=== PATIENT | male | born 1945 | race Caucasian/White ===

== ENCOUNTER → 2016-09-14 | Outpatient (CLI) | payer OTHER | LOC: BHFA 11:00 | PROVIDERS: ATTEND Internal Medicine Cardiovascular Disease | DX: I48.91 Unspecified atrial fibrillation (principal) ==

== ENCOUNTER → 2017-07-22 | Outpatient (CLI) | payer OTHER | LOC: BHFA 13:00 | PROVIDERS: ATTEND Internal Medicine Interventional Cardiology | DX: R07.9 Chest pain, unspecified (principal); I25.10 Atherosclerotic heart disease of native coronary artery without angina pectoris | CPT/HCPCS: 78452; 93017; A9500; J2785 ==

== ENCOUNTER 2017-08-23 06:03 | Day surgery (SDC) | payer OTHER ==
[2017-08-23] MEDS ORDERED: DIAZEPAM 5 MG TAB PO ONE (06:07)
[2017-08-23] MEDS ORDERED: ASPIRIN EC 325 MG TAB PO ONE ×2 (06:07→06:37)
[2017-08-23] MEDS ORDERED: NS 1,000 ML IV ONE (06:07)
[2017-08-23] MEDS ORDERED: diphenhydrAMINE 25 MG CAP PO ONE ×2 (06:07→06:37)
[2017-08-23] MEDS ORDERED: FAMOTIDINE 20 MG TAB PO ONE (06:07)
--- NOTE | 2017-08-23 06:28 | CPEKG ---
Heart Rate: 55 RR Interval: 1091 P-R Interval: 156 QRSD Interval: 84 QT Interval: 440 QTC Interval: 421 P Delano: 68 QRS Delano: 67 T Wave Delano: -4 EKG Severity - BORDERLINE ECG - EKG Impression: SINUS RHYTHM EKG Impression: BORDERLINE T ABNORMALITIES, INFERIOR LEADS Electronically Signed By: Lorenzo Sandoval 23-Aug-2017 06:44:37
[2017-08-23] MEDS ORDERED: FAMOTIDINE 20 MG TAB ONE (06:37)
[2017-08-23] MEDS ORDERED: DIAZEPAM 5 MG TAB ONE (06:38)
[2017-08-23 06:44] LABS: PLATELET COUNT 327 10^3/uL (150-400)
[2017-08-23 06:52] LABS: INR 1.03 (0.83-1.16); PROTIME(PATIENT) 13.7 SEC (12.0-15.0)
--- NOTE | 2017-08-23 07:09 | PDGENHP ---
History & Physical Chief Complaint: CP History of Present Illness: prior PCI/CAD Pertinent Past, Social, Family History: no smoking, Relevant Physical Exam: PERRLA. CTA-B. RRR s1 s2. soft NT, NG. no edema Cardiorespiratory Assessment: stable angina- plan for [facility] today
--- NOTE | 2017-08-23 07:10 | PDPROPOC ---
Sedation Plan of Care Sedation Plan of Care: mental status noted, patient educated of risks, benefits , alternatives, patient can tolerate sedation ASA Classification: ASA 2 Planned drugs: fentanyl, midazolam Mallampati Score: Class 2 Mallampati Reference Image: Patient passed 3-3-2 rule?: Yes
[2017-08-23] MEDS ORDERED: fentaNYL 100 MCG/2 ML INJ ONE (07:12)
[2017-08-23] MEDS ORDERED: LIDOCAINE 1% 300 MG/30 ML SDV ONE (07:12)
[2017-08-23] MEDS ORDERED: IOPAMIDOL (ISOVUE-370) 150 ML BTL IV ONE (07:13)
[2017-08-23] MEDS ORDERED: MIDAZOLAM 2 MG/2 ML VIAL ONE (07:13)
[2017-08-23] MEDS ORDERED: NITROGLYCERIN 0.4 MG BTL SL PRN (08:18)
[2017-08-23] MEDS ORDERED: ATROPINE SULFATE 1 MG/10 ML SYR IVP PRN (08:18)
[2017-08-23] MEDS ORDERED: HYDROCODONE/APAP 5/325 TAB PO PRN (08:18)
[2017-08-23] MEDS ORDERED: OXYCODONE/APAP 5/325 TAB PO PRN (08:18)
[2017-08-23] MEDS ORDERED: ONDANSETRON 4 MG/2 ML VIAL IVP PRN (08:18)
--- NOTE | 2017-08-23 08:45 | CPIP ---
[f rep st] INVASIVE CARDIAC PROCEDURE DATE OF PROCEDURE: 08/23/2017 INDICATIONS FOR PROCEDURE: Chest pain. Positive stress test. PROCEDURE: 1. Nonselective right groin sheathogram. 2. Bilateral selective coronary angiography. 3. Left heart catheterization. 4. Left angiogram. 5. Right groin closure with 6-[place] Angio-Seal. HISTORY: Briefly, this is a 72-year-old male with history of multiple PCIs to the LAD, diagonal eric ry. Patient was having outpatient angina and had a stress test which was positive for anterior ische zoey. Given these findings, patient consented for a left heart catheterization. DESCRIPTION OF PROCEDURE: After informed consent, patient brought to [facility], his r ight groin was prepped and draped in a sterile fashion. Using lidocaine, a short 6-[place] sheath was introduced in the right common femoral artery verified angiographically. Utilizing a 6-[place] sheat h, a JL4 catheter was advanced. Images of JL4 catheter revealed normal proximal left main. The circ umflex artery appeared to come off a stented portion of the LAD which had extended into the distal le ft main. The ostial portion of the circumflex artery appeared to have a 70% ostial pinch with a tiny marginal 1 which had a 70% pinch distally. The marginal artery had a mid lesion of 40% to 50% going into healthy distal marginal vessels which trifurcated. The LAD was extensively stented from the di stal left main into the mid portion. There was also a medium to large diagonal artery which coming o ff the midportion of the LAD which was extensively stented as well. The LAD had moderate in-stent re stenosis in its mid distal aspect. The distal vessel was small and had sluggish flow but was patent. The diagonal artery was successfully stented from its ostium to its proximal portion. Just at the distal edge of the stent there was a lesion of at least 60% to 70%. Distally, the vessel appeared to be widely patent. Everything was exchanged, the JL4 catheter was removed over the 0.035 wire. A JR 4 catheter was advanced to the right coronary artery. Image of right coronary artery revealed normal os, prox, mid, distal RCA, RPDA and RPL appeared widely patent. The JR4 catheter was removed over 0 .035 wire. Pigtail catheter was advanced to the left ventricle. LVEDP was 16 mmHg. Left ventriculo graphy in the ROB projection showed EF of 65% with no wall motion abnormality. There was no pullback gradient between the LV and the aorta. Pigtail catheter was removed over 0.035 wire. Right groin w as closed with 6-[place] Angio-Seal. Patient tolerated procedure well with no complications. IMPRESSION: 1. High-grade ostial left circumflex disease, which appears to have progressed since his last angiog daniel. Unfortunately, this area is coming off a stented region thus limiting any percutaneous interven tion of this area. 2. Paxldnls-md-rchesb focal in-stent restenosis of the mid distal left anterior descending stents. 3. Edge stenosis of a medium to large diagonal artery. 4. Normal right coronary artery. 5. Normal ejection fraction. PLAN: Given the fact that patient has shown evidence once again of in-stent restenosis development i n his LAD, as well as having progression of his ostial circumflex disease, as well as now an edge blanka nosis of his diagonal artery disease; I feel that a consult with CT Surgery is warranted as the patie nt has had multiple PCIs in the same arterial distribution over the last few years. We will contact Dr. Garcia later this morning and proceed accordingly. /[id number]/MODL
--- NOTE | 2017-08-23 10:50 | GCON ---
[f rep st] CONSULTATION DATE OF CONSULTATION: 08/23/2017 REFERRING PHYSICIAN: Missael Agee MD The patient was seen at the request of Dr. Agee with the patient's permission. IMPRESSION: 1. Recurrent in-stent stenosis status post multiple stents to the left anterior descending and high-grade proximal circumflex disease as well as diagonal disease. 2. Paroxysmal atrial fibrillation by history. 3. Hypertension. 4. Prostate cancer in remission. RECOMMENDATIONS: This very pleasant, quite active gentleman should undergo coronary artery revascularization. At the present time, he is on Pradaxa for his stents and paroxysmal atrial fibrillation. We will discontinue that 4 days prior to surgery. I see no need for bridge in the interim, although I will discuss that with Dr. Agee, I advised him that I would use arterial revascularization to his LAD and circumflex and place vein bypass to his diagonal. We will also perform a Gonzalez-Maze IV procedure for his atrial fibrillation which puts him at risk of 10% to 12% of having a permanent pacemaker. We will make every effort to avoid the sinus node obviously. Risk is less than 1%. Long-term patency is greater than 90% at 10 years on arterial revascularization. It is my hope that this will prevent him from having further coronary artery events. We discussed the low incidence of recurrence in the face of arterial revascularization. I did quote him a 93% 1 year free of atrial fibrillation which goes to 80% at 5 years off antiarrhythmic drugs. CHIEF COMPLAINT: Recurrent onset of exertional angina with running longer distances. This gentleman has a longstanding history of multiple coronary artery interventions with multiple stents performed in the past. He underwent diagnostic left heart cath today which revealed severe 2-vessel disease with recurrent end-stent stenosis with multiple previous stenting procedures to both the LAD and the circumflex. MEDICAL HISTORY: As stated. SURGERIES: Multiple stents. ALLERGIES: No known drug allergies. MEDICATIONS: Atorvastatin, Pradaxa, nitroglycerin, losartan, Firmagon, Diluent syringe, clopidogrel, and atorvastatin. Apparently clopidogrel has been held. SOCIAL HISTORY: He exercises 4-6 times a week. He is , has 1 child. He has very remote cigarette abuse. Denies heavy alcohol use. FAMILY HISTORY: Noncontributory. REVIEW OF SYSTEMS: Except for his exertional angina, he is symptom free, and all 10 systems were interrogated. PHYSICAL EXAMINATION: GENERAL: A slender, elderly gentleman lying supine in bed, alert, oriented, accompanied by his who is quite appropriate and supportive as well as very helpful with history and concerns. VITAL SIGNS: 120/ 80, pulse 76, respirations 14. HEENT: Normocephalic, PERRLA, EOMI. NECK: Without bruits. Carotid ultrasound is pending. HEART: Rate is regular without murmur. LUNGS: Clear. ABDOMEN: Soft, nontender. Bowel sounds are active. RECTAL AND GENITAL: Deferred. NEUROLOGIC: He is grossly intact. Motor deficits identified. He had a Holter monitor in September which showed sinus bradycardia with runs of AFib with a rate of 100-179 beats per minute. A stress test in July revealed a moderate area of mild severity in the apical portion. He has reversible anterior apical ischemia no longer present. Location of defect unchanged. Because of his anginal symptoms, he was referred for catheterization. PLAN: We will also perform carotid ultrasound and chest x-ray preoperatively. /[id number]/MODL MTDD
== END 2017-08-23 11:45 | disposition home or self-care (01) ==
LOC: FCATH 06:03
PROVIDERS: ATTEND Internal Medicine Cardiovascular Disease
PROC: 4A023N7 Measurement of Cardiac Sampling and Pressure, Left Heart, Percutaneous Approach (ICD-10-PCS; principal; 2017-08-23)
PROC: B2151ZZ Fluoroscopy of Left Heart using Low Osmolar Contrast (ICD-10-PCS; principal; 2017-08-23)
PROC: B2111ZZ Fluoroscopy of Multiple Coronary Arteries using Low Osmolar Contrast (ICD-10-PCS; principal; 2017-08-23)
DX: I25.10 Atherosclerotic heart disease of native coronary artery without angina pectoris (principal); I48.0 Paroxysmal atrial fibrillation; I10 Essential (primary) hypertension; Z85.46 Personal history of malignant neoplasm of prostate
CPT/HCPCS: C1760; J1644; J2250; J3010; Q9967

== ENCOUNTER 2017-09-05 07:15 | Inpatient (IN) | payer OTHER ==
[~2017-09-05 07:15] MED LIST: ADENOSINE 6 MG/2 ML VIAL ONE; ALBUMIN 5% 250 ML BOTTLE IV ONE; AMIODARONE HCL 150 MG/3 ML VIAL ONE; CALCIUM CHLORIDE 1 GM/10 ML INJ ONE; CITRATE DEXTROSE SOLN 500 ML BAG ONE; DOPamine/DEXTROSE/250 ML BAG IV ONE; HEPARIN 10,000 UNIT/10 ML MDV (1,000 UNIT/ML) ONE; INSULIN REGULAR HUMAN 100 UNIT in NS 100 ML IV ONE; LIDOCAINE 2% 100 MG/5 ML SYR ONE; MAGNESIUM SULFATE 1 GM/2 ML VIAL ONE; MANNITOL 25% 12.5 GM/50 ML VIAL IVP ONE; MILRINONE/DEXTROSE/100 ML BAG IV ONE; NA BICARBONATE 50 MEQ/50 ML VIAL ONE; NOREPINEPHRINE BITARTRATE 16 MG in NS 250 ML IV ONE; PHENYLEPHRINE HCL 50 MG in NS 250 ML IV ONE; PROTAMINE SULFATE 50 MG/5 ML VIAL IVP ONE; SODIUM BICARBONATE 20 MEQ, LIDOCAINE 1% 10 ML in NORMOSOL-R 1,000 ML MISC ONE; VERAPAMIL 5 MG, NITROGLYCERIN 2.5 MG, HEPARIN 500 UNIT, SODIUM BICARBONATE 0.2 MEQ in L... MISC ONE; ceFAZolin 1 GM VIAL ONE; methylPREDNISolone SOD SUCC 1 GM/8 ML VIAL ONE; niCARdipine/NACL/200 ML BAG IV ONE
[2017-09-05] MEDS ORDERED: CITRATE DEXTROSE SOLN 500 ML BAG MISC ONE (10:28)
[2017-09-05] MEDS ORDERED: MUPIROCIN 2% 22 GM OINT NS ONE (10:28)
[2017-09-05] MEDS ORDERED: AMINOCAPROIC ACID 5 GM/20 ML VIAL IV ONE (10:28)
[2017-09-05] MEDS ORDERED: ceFAZolin 2 GM/SWFI 2 GM/20 ML SYR IVP ONE (10:28)
[2017-09-05] MEDS ORDERED: LR 1,000 ML IV ONE (10:29)
[2017-09-05] MEDS ORDERED: niCARdipine/NACL 200 ML IV SCH (11:00)
[2017-09-05] MEDS ORDERED: VERAPAMIL 5 MG/2 ML VIAL ONE ×2 (11:16→16:29)
[2017-09-05] MEDS ORDERED: PAPAVERINE HCL 60 MG/2 ML SDV ONE ×2 (11:16→16:29)
[2017-09-05] MEDS ORDERED: MINERAL OIL 10 ML VIAL ONE (11:16)
--- NOTE | 2017-09-05 11:18 | PDHPUP ---
History & Physical Update H&P update statement: This history and physical update is based on an assessment of the patient which was completed after admission or registration (within 24 hours), but prior to the surgery/procedure. H&P update: H&P reviewed & patient examined, no change in patient's condition since H&P completed
[2017-09-05] MEDS ORDERED: MIDAZOLAM 2 MG/2 ML VIAL IVP ONE (11:52)
--- NOTE | 2017-09-05 11:52 | PDANEPAE ---
ANE History of Present Illness 72 yo for cabg ANE Past Medical History - Cardiovascular History Hx Hypertension: Yes Hx Arrhythmias: Yes Hx Coronary Artery / Peripheral Vascular Disease: Yes Hx Palpitations: Yes Cardiovascular History Comment: HYPERCHOLESTEREMIA. STENTS X5. ATRIAL FIB - ASYMPTOMATIC EXCEPT FOR "FLUTTERS" OCCASIONALLY AND HAS EXTREME FATIGUE - Pulmonary History Hx COPD: No Hx Asthma/Reactive Airway Disease: No Hx Recent Upper Respiratory Infection: No Hx Oxygen in Use at Home: No Hx Sleep Apnea: No Sleep Apnea Screening Result - Last Documented: Negative - Neurologic History Hx Cerebrovascular Accident: No Hx Seizures: No Hx Dementia: No - Endocrine History Hx Diabetes: No - Renal History Hx Renal Disorders: No Renal History Comment: RECENT UTI TXD. URINARY RETENTION - Liver History Hx Hepatic Disorders: No - Neurological & Psychiatric Hx Hx Neurological and Psychiatric Disorders: No - Cancer History Hx Cancer: Yes Cancer History Comment: PROSTATE CANCER TXD W/RADIATION AND NOW W/MEDICATIONS - Congenital Disorder History Hx Congenital Disorders: No - GI History Hx Gastrointestinal Disorders: No - Other Health History Other Health History: NEG - Chronic Pain History Chronic Pain: No - Surgical History Prior Surgeries: CATARACT. ANGIOGRAM 2012 & 2023 W/5 STENTS. ANGIOGRAM . RADIATION FOR PROSTATE CA. HERNIA REPAIR 1999 R W/MESH ANE Review of Systems Review of Systems: - Exercise capacity METS (RN): 5 METS ANE Patient History - Allergies Allergies/Adverse Reactions: Penicillins Allergy (Verified 08/29/17 16:41) NAUSEA & GI CRAMPS - Home Medications Home medications: home medication list seen and reviewed Home Medications: Atorvastatin Calcium [Lipitor 40 mg (*)] 40 mg PO DAILY 08/19/17 [Last Taken 10/19] Brimonidine 0.1% [ALPHAGAN P 0.1% (*)] 1 drops EACHEYE BID 08/19/17 [Last Taken 09/05/17] Cholecalciferol Vit D3 [Vitamin D3 (*)] 1,000 units PO DAILY 08/19/17 [Last Taken 08/31/17] Clopidogrel Bisulfate [Plavix (*)] 75 mg PO DAILY 08/19/17 [Last Taken 08/31/17] Dabigatran Etexilate Mesyl [Pradaxa 150 MG (*)] 150 mg PO BID 08/19/17 [Last Taken 08/31/17] Degarelix Acetate [Firmagon] 80 mg SQ Q30D 08/19/17 [Last Taken 08/15/17] Enzalutamide [Xtandi] 160 mg PO DAILY 08/19/17 [Last Taken 09/04/17] Ezetimibe [Zetia 10 MG (*)] 10 mg PO DAILY 08/19/17 [Last Taken 09/04/17] Losartan Potassium [Cozaar 50 mg (*)] 50 mg PO DAILY 08/19/17 [Last Taken ] Multivitamins [Multivitamin (*)] 1 each PO DAILY 08/19/17 [Last Taken 08/31/17] Nitroglycerin [Nitrostat 0.4 mg (*)] 0.4 mg SL Q5M PRN 08/19/17 [Last Taken Unknown] - NPO status NPO Since - Liquids (Date): 09/04/17 NPO Since - Liquids (Time): 20:00 NPO Since - Solids (Date): 09/04/17 NPO Since - Solids (Time): 18:00 - Smoking Hx Smoking Status: Former smoker - Family Anes Hx Family Hx Anesthesia Complications: NEG ANE Labs/Vital Signs - Vital Signs Blood Pressure: 163/85 Heart Rate: 52 Respiratory Rate: 18 O2 Sat (%): 96 Height: 5 ft 8 in Weight: 65.771 kg ANE Physical Exam - Airway Mallampati Score: Class 2 Mouth exam: normal dental/mouth exam - Pulmonary Pulmonary: no respiratory distress - Cardiovascular Cardiovascular: regular rate and rhythym - ASA Status ASA Status: III ANE Anesthesia Plan Anesthesia Plan: general endotracheal anesthesia Lines/Monitors: arterial line, central line, ALONSO
[2017-09-05] MEDS ORDERED: fentaNYL 250 MCG/5 ML INJ ONE (12:17)
[2017-09-05] MEDS ORDERED: REMIFENTANIL HCL 1 MG VIAL ONE (12:17)
[2017-09-05] MEDS ORDERED: PROPOFOL/EMULSION 500 MG/50 ML BOTTLE IV ONE (12:18)
[2017-09-05] MEDS ORDERED: DEXMEDETOMIDINE HCL 200 MCG in NS 50 ML IV ONE ×2 (14:00→16:30)
--- NOTE | 2017-09-05 15:05 | GCON ---
[f rep st] CONSULTATION INTRAOPERATIVE CONSULT. DATE OF CONSULTATION: 09/05/2017 REFERRING PHYSICIAN: Carmelo Garcia DO PRIMARY CARE PHYSICIAN: Dr. 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 HISTORY: This 72-year-old gentleman who is having cardiac surgery. He is asleep and they were attem pting to pass a catheter and they were unable to do that. So, he has had blood at his meatus. Upon arrival, and on exam, his of abdomen, he has no previous lower abdominal incisions but he has a camilla ng stencil for external beam radiation therapy. At the present time, he has been unable to be cathete rized. He does catheterize himself periodically for dilation and was going to be treated, but his ca rdiac condition has taken priority. PHYSICAL EXAM: ABDOMEN: Soft under general anesthesia. LUNGS: He has no respiratory distress because he is on the ventilator. GENITOURINARY: Penis is normal and has no pubic hair. Testicles are atrophied. LOWER EXTREMITIES: Show minimal edema. PROCEDURE IN DETAIL: At that point, he was prepped and draped in normal sterile fashion. With a flex ible cystoscope, I could identify that his urethra was normal up to the bulb, sphincteric and prostat ic urethra and at that point, I was able to pass a guidewire, under direct vision, into that and then was able to gradually dilate the contracted/urethral stricture with a 20-Thai Williams tip dilating sheath and was able to get a 16 Phillip catheter in the bladder that drained the urine. The urine cul ture was sent. The 10 cc balloon inflated. At the present time, I have recommend he continue the cat heter until he is ambulating and then they removed it and he will have followup with his urologist wh o was not in this facility. Total of 45 minutes was involved in the care and treatment of this patient. PROCEDURE: Cystoscopy with complex dilation of the urethral stricture, complicated catheterization a nd intraoperative consult. /[id number]/MODL
[2017-09-05] MEDS ORDERED: MAGNESIUM SULF 2 GM/WATER 50 ML BAG IV ONE (16:19)
[2017-09-05] MEDS ORDERED: ROCURONIUM 50 MG/5 ML VIAL ONE ×3 (18:00)
[2017-09-05] MEDS ORDERED: ONDANSETRON 4 MG/2 ML VIAL ONE (18:00)
[2017-09-05] MEDS ORDERED: DEXAMETHASONE 4 MG/ML VIAL ONE ×2 (18:00)
[2017-09-05] MEDS ORDERED: PHENYLEPHRINE HCL 100 MCG/ML SYR ONE (18:00)
[2017-09-05] MEDS ORDERED: BISACODYL 10 MG SUPP PR PRN (18:33)
[2017-09-05] MEDS ORDERED: D50W 25 GM/50 ML SYR IVP PRN (18:33)
[2017-09-05] MEDS ORDERED: MEPERIDINE 25 MG/ML SYR IVP PRN (18:33)
[2017-09-05] MEDS ORDERED: POTASSIUM Cl (KCl) 50 ML IV PRN (18:33)
[2017-09-05] MEDS ORDERED: MAGNESIUM HYDROXIDE 30 ML UDCUP PO PRN (18:33)
[2017-09-05] MEDS ORDERED: SODIUM CL NASAL 45 ML BTL EACHNARE PRN (18:33)
[2017-09-05] MEDS ORDERED: LACTULOSE 20 GM/30 ML UDCUP PO PRN (18:33)
[2017-09-05] MEDS ORDERED: ONDANSETRON DISINTEGRATING 4 MG TAB PO PRN (18:33)
[2017-09-05] MEDS ORDERED: ACETAMINOPHEN 650 MG SUPP PR PRN (18:33)
[2017-09-05] MEDS ORDERED: PANTOPRAZOLE SODIUM 40 MG VIAL IVP ONE (18:33)
[2017-09-05] MEDS ORDERED: METOCLOPRAMIDE 10 MG/2 ML VIAL IVP PRN (18:33)
[2017-09-05] MEDS ORDERED: MAGNESIUM SULF 2 GM/WATER 50 ML IV ONE (18:33)
[2017-09-05] MEDS ORDERED: CEPACOL LOZENGE PO PRN (18:33)
[2017-09-05] MEDS ORDERED: POLYETHYLENE GLYCOL 3350 17 GM PKT PO PRN (18:33)
[2017-09-05] MEDS ORDERED: fentaNYL 100 MCG/2 ML INJ IVP PRN (18:33)
[2017-09-05] MEDS ORDERED: ACETAMINOPHEN 325 MG TAB PO PRN (18:33)
[2017-09-05] MEDS ORDERED: NS 1,000 ML IV SCH (18:45)
[2017-09-05] MEDS ORDERED: INSULIN REGULAR HUMAN 100 UNIT in NS 100 ML IV SCH (19:00)
[2017-09-05] MEDS ORDERED: SODIUM BICARBONATE 50 MEQ/50 ML SYR ONE (19:10)
[2017-09-05] MEDS ORDERED: SODIUM BICARBONATE 50 MEQ/50 ML SYR IV ONE (19:30)
[2017-09-05] MEDS: ONDANSETRON 4 MG/2 ML VIAL IVP PRN (20:01)
--- NOTE | 2017-09-05 20:16 | GOP ---
[f rep st] OPERATIVE REPORT DATE OF OPERATION: 09/05/2017 SURGEON: Carmelo Garcia DO SHOULDER BONER: Ezequiel Carter PA-C ANESTHESIOLOGIST: Pilar Son MD. PREOPERATIVE DIAGNOSIS: Arteriosclerotic heart disease and paroxysmal atrial fibrillation. POSTOPERATIVE DIAGNOSIS: Arteriosclerotic heart disease and paroxysmal atrial fibrillation. PROCEDURE PERFORMED: 1. Coronary artery bypass grafting x3 with 2 arterial conduits with left internal mammary artery to the left anterior descending, right internal mammary artery to the diagonal, saphenous vein graft to the lateral circumflex. 2. Left-sided maze procedure with occlusion of left atrial appendage. FINDINGS: Patient had a history of paroxysmal atrial fibrillation. He presented in sinus rhythm off anticoagulants. He also was noted to have 2-vessel disease with multiple prior stents. DESCRIPTION OF PROCEDURE: He was consented for surgery, brought to the operating room, intubated, mo nitoring lines were placed. He was prepped and draped in sterile classical manner. A sternotomy was performed. Both mammaries were harvested. They were relatively small vessels with brisk flow measu ring 1.82 mm. The aorta was slightly enlarged, but without thickening or calcification. LV and RV c hambers appeared normal. Both mammaries were harvested. He was heparinized, cannulated in the stand yakov fashion, cardiopulmonary bypass was begun. We then did testing on both left and right pulmonary vein systems with no evidence of entrance or exi t block and good conduction across both. We then did multiple pulmonary vein ablations; in fact, we did 25 ablations to the right pulmonary vein with multiple sets requiring 5 seconds or less for compl etion. Despite that, we continued to test positive for entrance block. However, exit block was conf irmed. At that point we felt there was no further benefit in attempting to further ablate. We had r esected all the fat off the groove, so it was direct muscle contact. We then proceeded with arresting the heart with antegrade cardioplegia and topical hypothermia. We t hen did 9 or 10 lesion sets across the left pulmonary vein system, which was tested at the end of the procedure without evidence of entrance or exit conduction with good block identified. We then opene d the left atrial appendage and did 4 to 6 lesion sets across the Coumadin ridge into the left superi or pulmonary vein crossing the previous ablation line. We then placed a 35 mm AtriClip across the ba se of the left atrial appendage. The terminus of the left and right coronary systems was marked over the coronary sinus for further cryoablation with methylene blue. We then opened the left atrium and a retractor was placed. We performed the floor and roof lesion with multiple lesion sets; again, re quiring less than 10 seconds for completion, completing the box lesion set both superiorly and inferi yvette. We then used external cryoablation for 3 minutes across the coronary sinus watching an ice bal l form on the inside of the left atrium. This was marked and overlapped with a 2- minute cryoablatio n across the isthmus connecting to the right inferior pulmonary line. The left atrium was then close d in standard fashion. We then performed vein grafting to the posterolateral circumflex. Because it was such a distal vessel , I did not think a mammary would reach it. It was a 2.0 mm vessel. It had a 2.8-3 mm vein anastomo sed without difficulty. The proximal anastomosis was then completed to the ascending aorta with 5-0 Prolene. Rewarming was begun while the right internal mammary was brought through a lateral pericard ial incision and grafted to a moderate-size 1.8 mm vessel, tacking it to the epicardium without tensi on. We then grafted the mammary to the LAD beyond extensive stents where the vessel measured 2 mm. It was also tacked to the epicardium. We then removed the cross-clamp with suction on the ascending aortic vent and intermittent aspiration through the LV apex. When no further air was identified, he was weaned from bypass. He required atrial pacing because of a junctional bradycardia. He was somew hat coagulopathic. We spent some time confirming that it was not surgical bleeding. We then closed the thymic fat and pericardium over the heart. The chest was closed in standard fashion with 2 atria l, 2 ventricular, 2 pleural and 1 mediastinal drain. The chest was closed in standard fashion. Liz lundberg was returned to ICU in stable condition. /[id number]/MODL
[2017-09-05] MEDS: ceFAZolin 2 GM/SWFI 2 GM/20 ML SYR IVP SCH (20:31)
[2017-09-05] MEDS ORDERED: SODIUM BICARBONATE 50 MEQ/50 ML SYR IVP ONE (21:45)
[2017-09-05] MEDS: SENNOSIDES/DOCUSATE SODIUM TAB PO SCH (21:45)
[2017-09-05] MEDS: BRIMONIDINE 0.1% 5 ML OPHT.BTL EACHEYE SCH (21:46)
[2017-09-05] MEDS: DORZOLAMIDE 2% OPTH DROPS OP SCH (21:46)
[2017-09-05] MEDS: MUPIROCIN 2% 22 GM OINT NS SCH (21:47)
[2017-09-05] MEDS ORDERED: ceFAZolin 2 GM/DEXTROSE 100 ML IV SCH (22:00)
[2017-09-06] MEDS: HYDROCODONE/APAP 5/325 TAB PO PRN ×7 (02:50→22:13)
[2017-09-06] MEDS: ALBUMIN 5% 250 ML IV PRN ×3 (03:08→06:14)
[2017-09-06] MEDS: ceFAZolin 2 GM/SWFI 2 GM/20 ML SYR IVP SCH ×3 (04:14→22:07)
[2017-09-06 05:23] LABS: PLATELET COUNT 97 10^3/uL (150-400)
[2017-09-06] MEDS: HEPARIN 5,000 UNIT/0.5 ML SYR SC SCH ×3 (05:24→22:05)
--- NOTE | 2017-09-06 07:14 | SOAPPROG ---
SOAP Progress Note Assessment/Plan: Assessment: POD#1 urgent CABG x 3 (EVANS-LAD, QIAN-Dx, SV-LCX), open vein harvest left low leg, left sided Maze with AtriClip ligation VALERIE Cystoscopy, complex dilatation of urethral stricture and complex passage of edwards cath per urology Sx progressive CAD/ISR with preserved LV systolic fx - s/p CABG with 2 bilateral mammaries. Hemodynamically stable early postop course, Apaced. No sustained vasoactive support. Secondary prevention with baby ASA, BB as allowed by BP and HR, and statin when eating well. Plavix no longer needed as stented territories revascularized. Paroxysmal atrial fibrillation/chronically anticoagulated with Pradaxa - Only partial Maze completed d/t fragility of tissues. Predominant postop rhythm junctional and Apaced for optimized hemodynamics. Urethral stricture - Attributed to scarring post XRT for prostate CA. Intraop dilatation by urology. Edwards to be removed today. Acute expected blood loss anemia with thrombocytopenia and mild coagulopathy - Stable s/p 1u PRBC. No evidence active bleeding. Care with re-anticoagulation while plts depressed. Plan: D/C edwards. Reduce backup pacing to 60. Inc rate to 80 if SBP < 90. PRBC for CVP < 10 or BP support. D/C sivan if holding stable SBP next couple hrs. Keep CTs to WS. Consider conversion to bulb suction if no definite air leak when more mobile. Inc activity as tolerated. Possible tx to PCU later today. 09/06/17 07:10 Subjective: Doing ok. Able to sleep a little. Satisfactory analgesia. Thirsty. No nausea or dizziness. Objective: Vital Signs Temp Pulse Resp BP Pulse Ox 36.6 C 80 17 92/51 L 94 09/06/17 05:00 09/06/17 06:00 09/06/17 06:00 09/06/17 06:00 09/06/17 06:00 Microbiology 09/05/17 13:20 Mycobacterial Smear (RHONDA) - Final Other - Other 09/05/17 14:13 Mycobacterial Smear (RHONDA) - Final Other - Aspirate Mycobacterial Culture - Final 09/05/17 14:13 Gram Stain - Final Other - Aspirate Anaerobic Culture - Final Laboratory Results 09/06/17 05:10 09/06/17 05:10 09/05/17 09/06/17 09/07/17 05:59 05:59 05:59 Intake Total 3187 Output Total 2670 Balance 517 No gtts. Apaced at 80 for underlying JR. Stable suppl O2 req. CTOP thinning. Amount slightly elevated. CXR -> No visible PTX, mild pulm vasc congestion, left basilar atelectasis. Labs as expected. Physical Exam - Physical Exam General Appearance: alert, no apparent distress Respiratory: crackles (bilat), other (blakes x 3 y-d to pleurovac, serosang drainage, +tidal, small air leak with cough) Cardiac/Chest: regular rate, rhythm (paced), other (Sternotomy and LLE venotomy CDI. A&V wires intact.) Abdomen: normal bowel sounds, non-tender, soft Skin: warm/dry Extremities: swelling (1+ gen) ICD10 Worksheet Patient Problems: Problems Problem Status Onset CAD (coronary artery disease) Acute
--- NOTE | 2017-09-06 07:21 | POSTANESTH ---
Post Anesthetic Evaluation Cardiovascular Status: Normal, Stable Respiratory Status: Other, See Comment Level of Consciousness/Mental Status: Moderately Sleepy Pain Control: Adequate, Prn Tx Ordered Nausea/Vomiting Control: Adequate, Prn Tx Ordered Complications Possibly Related to Anesthesia: None Noted (pt seen last night, sedated, on vent. No comp anesthesia noted)
[2017-09-06] MEDS ORDERED: ALBUMIN 5% 250 ML IV ONE ×2 (08:00→08:30)
[2017-09-06] MEDS: PANTOPRAZOLE SODIUM 40 MG TAB PO SCH (09:06)
[2017-09-06] MEDS: ASPIRIN 81 MG CHEWABLE TAB PO SCH (09:06)
[2017-09-06] MEDS: SENNOSIDES/DOCUSATE SODIUM TAB PO SCH ×2 (09:06→22:11)
[2017-09-06] MEDS: BRIMONIDINE 0.1% 5 ML OPHT.BTL EACHEYE SCH ×2 (09:10→22:08)
[2017-09-06] MEDS: DORZOLAMIDE 2% OPTH DROPS OP SCH ×2 (09:11→22:08)
[2017-09-06] MEDS: MUPIROCIN 2% 22 GM OINT NS SCH ×2 (09:12→22:11)
--- NOTE | 2017-09-06 09:22 | PDMN ---
Medical Necessity Medical necessity: IP surgery per [facility] for CABG, partial hazel-maze cpt [id number], [id number]
[2017-09-06] MEDS: ONDANSETRON 4 MG/2 ML VIAL IVP PRN (10:22)
[2017-09-06] MEDS ORDERED: FUROSEMIDE 40 MG/4 ML VIAL ONE (14:49)
--- NOTE | 2017-09-06 15:23 | ASMTCMCOM ---
CM Note CM Note Notes: 72yr old male admitted for CAD, HTN, HLD. POD#1 of a CABG x 3 and a Maze. Lives with his . 3 chest tubes. Therapies to eval for discharge needs. CM to follow. Date Signed: 09/06/2017 03:22 PM Electronically Signed By:Ifeoma Hinson LCSW
[2017-09-06] MEDS ORDERED: FUROSEMIDE 40 MG/4 ML VIAL IVP ONE ×2 (15:30→19:45)
[2017-09-06] MEDS: LEVALBUTEROL 1.25 MG/3 ML DEYVIAL IH SCH (21:30)
[2017-09-07] MEDS: HYDROCODONE/APAP 5/325 TAB PO PRN ×6 (01:44→22:00)
[2017-09-07 04:38] LABS: PLATELET COUNT 97 10^3/uL (150-400)
--- NOTE | 2017-09-07 04:47 | GCON ---
[f rep st] CONSULTATION PULMONARY CRITICAL CARE CONSULTATION DATE OF CONSULTATION: 09/06/2017 REASON FOR CONSULTATION: Intensive care unit evaluation and medical management following open heart surgery. HISTORY: The patient is a 72-year-old, relatively healthy gentleman, who underwent coronary artery b ypass grafting x3 yesterday using internal mammary arteries and left saphenous vein. He also had a m aze procedure for atrial fibrillation and ligation of left atrial appendage. During surgery, a Phillip catheter could not be passed secondary to a urethral stricture and Urology was called. This was brii liam, but has subsequently been removed. The patient did well in surgery, without significant complications. Some volume overload was noted. He was extubated in the intensive care unit last night, and has done relatively well. Blood pressur es have been low at times and throughout the day today, he has had increasing oxygen requirements. S erial chest x-rays show increasing bibasilar atelectasis and volume loss. He has no history of underlying lung disease. He does have a history of known coronary artery diseas e, and atrial fibrillation. He was previously anticoagulated with Pradaxa. At the current time, he does complain of some expected anterior chest pain. He feels somewhat short of breath and somewhat congested. PAST MEDICAL HISTORY: As outlined above: Coronary artery disease, atrial fibrillation, a history of prostate surgery and known urethral stricture from this, hyperlipidemia, and anticoagulation. SOCIAL HISTORY: The patient is , with a supportive family. He is a never smoker. Significan t alcohol is negative. FAMILY HISTORY: Noncontributory. REVIEW OF SYSTEMS: Negative except as mentioned above. He has been relatively healthy his whole lif e, has run marathons up until recently. DRUG ALLERGIES: Penicillins. PHYSICAL EXAMINATION: GENERAL: Reveals a pleasant gentleman who is sitting partially upright in bed . Oxygen is in place at 10 L by OxyMask with saturation of 88%. Respiratory rate is 24. Blood pres sure is 110/68. Heart rate is 60 and paced. CVP is 14. HEENT: Unremarkable for lymphadenopathy or thyromegaly. Mild jugular venous distention appears to be present. CHEST: Chest/mediastinal tubes are in place with serosanguineous drainage. Clear anteriorly. Breath sounds are diminished at the bases. Some rales are present. No rhonchi are appreciated, no wheezes. HEART: Regular and paced. A soft systolic murmur is present, no obvious gallop. ABDOMEN: Soft. The patient has been straigh t cathed without significant difficulty. There was some blood mixed with urine and some small clots, but bladder scan is negative and urinary output acceptable. EXTREMITIES: Unremarkable for edema. SKIN: Pale. NEUROLOGIC: Intact. DATABASE: Chest x-ray shows increasing bibasilar atelectasis, as noted above. LABORATORY: White blood cell count this morning was 14,000, hematocrit currently is 25. Platelets 9 7,000. Sodium is 147, potassium 5.4, BUN 23 with creatinine of 1.0. Glucose is 177. ASSESSMENT: 1. Status post coronary artery bypass grafting. Hemodynamically, he is stable, not requiring presso rs. Blood pressures have been borderline; however, appear to be improving at this time. His volume status is good, with a CVP currently of approximately 14, so slightly volume overloaded. However, th ere is no evidence of congestive heart failure or pulmonary edema on x-ray. He has been given diuret ics this evening. 2. Hypoxemia. This has increased. He is on an OxyMask. If needed, a Vapotherm device or BiPAP cou ld be used tonight if he worsens. 3. Bibasilar atelectasis. Infiltrates/consolidation and pneumonia seem very unlikely. Attention to inspiratory spirometry, mobilization as tolerated, and the addition of Xopenex may be of benefit. M ucolytics can be considered. X-ray will be followed. 4. Urethral stricture. I do not believe this is a significant issue at this time, but if needed, a Phillip catheter could be replaced. 5. Acute blood loss anemia. Hematocrit is 25. He had some ongoing serosanguineous drainage from hi s chest and mediastinal tubes as expected. Hematocrit will be followed. 6. Metabolic potassium is on the high side as are glucoses. These will be followed. 7. Deep venous thrombosis prophylaxis: On subcu heparin. 8. Gastrointestinal prophylaxis: On pantoprazole. PLAN AND RECOMMENDATIONS: The patient will be kept in the intensive care unit. IS will be encourage d hourly when he is awake. Xopenex will be added to his regimen. Coughing, deep breathing will be e ncouraged. Chest x-ray will be followed. Laboratory will be followed. Further Lasix can be conside red if CVP continues to rise. Further plans and recommendations will be made based on his progress over the next 12-24 hours. /[id number]/MODL
[2017-09-07] MEDS: ceFAZolin 2 GM/SWFI 2 GM/20 ML SYR IVP SCH ×3 (05:00→22:01)
[2017-09-07] MEDS: LEVALBUTEROL 1.25 MG/3 ML DEYVIAL IH SCH ×3 (05:52→21:20)
[2017-09-07] MEDS: HEPARIN 5,000 UNIT/0.5 ML SYR SC SCH ×3 (06:03→22:08)
--- NOTE | 2017-09-07 06:28 | SOAPPROG ---
SOAP Progress Note Assessment/Plan: Assessment: POD#2 urgent CABG x 3 (EVANS-LAD, QIAN-Dx, SV-LCX), open vein harvest left low leg, left sided Maze with AtriClip ligation VALERIE. Cystoscopy, complex dilatation of urethral stricture and complex passage of edwards cath per urology Sx progressive CAD/ISR with preserved LV systolic fx - s/p CABG with 2 bilateral mammaries. Marginal early postop hemodynamics and secondary renal insuff treated with IVF and transient low dose pressor support. Diuresis of moderate fluid overload in progress. Secondary prevention with baby ASA, BB as allowed by BP and HR, and statin when eating well. Plavix no longer needed as stented territories revascularized. Postoperative acute respiratory insufficiency - Hypoventilation with increasing suppl O2 requirements and basilar consolidation. No overt pulm edema. ? suboptimal pain control. Bronchodilators, mucolytics and pulm physiotherapies per ICU. Paroxysmal atrial fibrillation/chronically anticoagulated with Pradaxa - Only partial Maze completed d/t fragility of tissues. Predominant postop rhythm junctional and Apaced for optimized hemodynamics. Urethral stricture - Attributed to scarring post XRT for prostate CA. Intraop dilatation by urology. Edwards removed yest. No elev PVRs. Acute expected blood loss anemia with thrombocytopenia and mild coagulopathy - Stable s/p 2u PRBC. No evidence active bleeding. Care with re-anticoagulation while plts depressed. Plan: Decr Apace backup 56. Inc rate to 80 if SBP < 90 or intrinsic rate < 60. PRBC for CVP < 10 or BP support. Lasix prn CVP > 15. Convert blakes to bulb suction. Optimize pain control. Inc activity as tolerated. Keep in ICU until suppl O2 req < 6 lpm. 09/07/17 06:25 Subjective: Hanging in there. Hurts to breath. Breathless with min activity. Thirsty. Objective: Vital Signs Temp Pulse Resp BP Pulse Ox 36.5 C 60 27 H 117/64 91 L 09/06/17 20:00 09/07/17 06:00 09/07/17 06:00 09/07/17 06:00 09/07/17 06:00 Microbiology 09/05/17 14:13 Mycobacterial Smear (RHONDA) - Final Other - Aspirate Mycobacterial Culture - Final Laboratory Results 09/07/17 04:15 09/07/17 04:15 09/06/17 09/07/17 09/08/17 05:59 05:59 05:59 Intake Total 3186 6435 Output Total 2670 1989 Balance 517 595 AJR mid 60s. Apace backup turned down to 56. SBPs > 110, MAPs > 70. Dwindling UOP responsive to IV lasix. Slight bump in Cr. Inc suppl O2 req yest, up to 15 lpm oxymask overnoc. Positive fluid balance. +10 kg overall. CVPs currently 18. CXR -> hypovent, mild pulm vasc congestion, worsening basilar consolidation, tiny left apical PTX. Physical Exam - Physical Exam General Appearance: alert, no apparent distress (able to talk in complete sentences and cooperate w exam) Respiratory: decreased breath sounds, wheezing (exp), other (blakes x 3 y-d to pleurovac, thin serosang drainage, no air leak with cough.) Cardiac/Chest: regular rate, rhythm, other (Sternotomy CDI. A&V wires intact) Abdomen: normal bowel sounds, non-tender, soft Skin: warm/dry Extremities: swelling (1+ gen) ICD10 Worksheet Patient Problems: Problems Problem Status Onset CAD (coronary artery disease) Acute
[2017-09-07] MEDS ORDERED: FUROSEMIDE 40 MG/4 ML VIAL IVP ONE (07:26)
[2017-09-07] MEDS: SENNOSIDES/DOCUSATE SODIUM TAB PO SCH ×2 (08:34→22:00)
[2017-09-07] MEDS: BRIMONIDINE 0.1% 5 ML OPHT.BTL EACHEYE SCH ×2 (08:35→22:01)
[2017-09-07] MEDS: ASPIRIN 81 MG CHEWABLE TAB PO SCH (08:35)
[2017-09-07] MEDS: DORZOLAMIDE 2% OPTH DROPS OP SCH ×2 (08:35→22:01)
[2017-09-07] MEDS: PANTOPRAZOLE SODIUM 40 MG TAB PO SCH (08:35)
[2017-09-07] MEDS: MUPIROCIN 2% 22 GM OINT NS SCH (08:36)
[2017-09-07] MEDS ORDERED: MIDAZOLAM 2 MG/2 ML VIAL IVP ONE (13:00)
[2017-09-07] MEDS ORDERED: fentaNYL 100 MCG/2 ML INJ IVP ONE (13:00)
[2017-09-07] MEDS ORDERED: LIDOCAINE 2% JELLY 5 ML TUBE TP ONE ×2 (13:00→13:19)
[2017-09-07] MEDS ORDERED: LIDOCAINE 1% 300 MG/30 ML SDV MISC ONE ×3 (13:00→14:15)
--- NOTE | 2017-09-07 13:18 | PDINTPN ---
Audit Tech Progress Note Assessment/Plan: Assessment: Status post CABG x3. Hemodynamics stable, doing well. Acute blood-loss anemia. Status post 2nd unit of blood yesterday. Hematocrit stable. Bleeding slowing down from chest tubes. Hypoxemia: Associated with atelectasis/infiltrates/effusions on x-ray. Mucus plugging may be present. For bronchoscopy and airway assessment,removal of mucus today. Prophylaxis: On subcu heparin and pantoprazole. History of atrial fibrillation, paced. Metabolic: Glucoses borderline high. Follow. Plan: Continue care in the intensive care unit. Continue IS, bronchodilator therapy. For bronchoscopy later today for mucous plugging. Continue other medications. Increase mobilization as tolerated. 30 min of critical care time spent directly with the patient, not including bronchoscopy. Discussed with the patient and his , cardiovascular surgery, nursing, RT, and the ICU multi disciplinary team. Subjective: Doing okay, some pulmonary congestion, some expected postoperative pain. Remains hypoxemic, on a mask. Does note shortness of breath. Objective: Vital Signs Temp Pulse Resp BP Pulse Ox 36.5 C 63 20 107/56 L 93 09/07/17 08:00 09/07/17 10:00 09/07/17 10:00 09/07/17 10:00 09/07/17 10:00 Microbiology 09/05/17 13:20 Urine Culture - Final Urine,Catheterized 09/05/17 14:13 Mycobacterial Smear (RHONDA) - Final Other - Aspirate Mycobacterial Culture - Final Laboratory Results 09/07/17 04:15 09/07/17 12:00 09/06/17 09/07/17 09/08/17 05:59 05:59 05:59 Intake Total 3187 2585 Output Total 2670 1990 1180 Balance 517 595 -1180 Laboratory Tests 09/07/17 04:15 Sodium 144 Potassium 4.7 Chloride 110 Carbon Dioxide 22 Anion Gap 12 BUN 28 H Creatinine 1.3 Glucose 196 H Calcium 7.1 L CXR: Increasing bibasilar atelectasis, right greater than left. Query mucus plugging? Small apical pneumo remains present on the left. Physical Exam - Physical Exam General Appearance: alert, mild distress, other (Up in the chair) EENT: PERRL/EOMI, other (Oxy mask at 12 L) Neck: normal inspection (Jugular venous distension present) Respiratory: lungs clear, decreased breath sounds (At both bases, right greater than left), rales (Rales present, possible rub on left.) Cardiac/Chest: regular rate, rhythm (Paced), other (Chest/mediastinal tubes with decreased output) Abdomen: normal bowel sounds, non-tender, soft Male Genitalia: other Skin: warm/dry, pallor Extremities: No pedal edema Neuro/Psych: no motor/sensory deficits, No cognition abnormalities ICD10 Worksheet Patient Problems: Problems Problem Status Onset CAD (coronary artery disease) Acute
[2017-09-07] MEDS ORDERED: BENZOCAINE UNIT DOSE SPRAY HURRICAINE MM ONE (13:19)
--- NOTE | 2017-09-07 16:24 | GPN ---
[f rep st] PROCEDURE NOTE DATE OF PROCEDURE: 09/07/2017 PROCEDURE: Therapeutic bronchoscopy. INDICATION: Increasing right lower lobe atelectasis, consistent with mucus plugging in a patient 2 d ays postop from coronary artery bypass grafting. DESCRIPTION OF PROCEDURE: The procedure was done in the intensive care unit. Appropriate time-out w as performed. Informed consent was obtained from the patient. N95 masks were worn despite no risk o f communicable respiratory illness. 50 mg of fentanyl and 2 mg of Versed were used for conscious sedation. A small amount of Hurricaine spray and 1% lidocaine were used for topical anesthesia of the oropharynx and lower tracheobronchial tree. Fiberoptic bronchoscope was passed via bite block orally in the larynx. The vocal cords were identif ied. They moved normally with respiration. The bronchoscope was advanced through the cords, into th e trachea, and in the lower tracheobronchial tree bilaterally. All areas were observed to at least t he 1st subsegmental level. Anatomy was normal bilaterally. The mucosa was normal. In the bronchus intermedius/right lower lobe, there was purulent mucus/mucus plugging. This was removed with suction and lavage. The mucus was moderate in amount. Underlying anatomy was normal. Cultures were sent. There were no complications. Oxygen saturations on supplemental oxygen remained 88% or greater throu ghout the procedure, and vital signs remained normal. IMPRESSION: Moderate amounts of mucus related to the bronchus intermedius and right lower lobe. The se were removed with suction and lavage. Impaired ventilation of the right lower lung is questioned. /[id number]/MODL
--- NOTE | 2017-09-07 16:37 | ASMTCMCOM ---
CM Note CM Note Notes: OT is recommending home and PT is initially recommending home with 24 hour supervision. CM will continue to monitor to see if patient needs any home health care support. D/C plan TBD. Date Signed: 09/07/2017 04:36 PM Electronically Signed By:Becki Flores LCSW
--- NOTE | 2017-09-07 17:20 | ECHO ---
[email or web address] [address] Main: [phone] Fax: Transthoracic Echocardiogram Name: RAJEEV BRAVO MR#: [id number] Study Date: 09/07/2017 Study Time: 03:32 PM Date of : 1945 Age: 72 year(s) Height: 172.7 cm (68 in.) Weight: 76.2 kg (168 lb.) BSA: 1.9 m2 Gender: Male Examination: Limited Echo Indication: Post CABG for LV function 126 Image Quality: Contrast: Requested by: Carmelo Garcia BP: 126 mmHg/67 mmHg Heart Rate: Rhythm: Indication: Post CABG for LV function Procedure Staff [employer] Publishing Agent: Wendi Asif [facility] Reading Physician: Missael Nicolas MD Requesting Provider: Conclusions: The ejection fraction is estimated to be 55-60 %. No pericardial effusion. Measurements: Chambers Valvular Assessment AV/MV Valvular Assessment TV/PV Normal Normal Normal Name Value Range Name Value Range Name Value Range EF Range: 55-60 % Continued Measurements: Findings: The ejection fraction is estimated to be 55-60 %. Pericardium: No pericardial effusion. (No Signature Object) Patient: RAJEEV BRAVO Study Date: 09/07/2017 Page 1 of 1 03:32 PM [id number]
[2017-09-07] MEDS ORDERED: fentaNYL 12 MCG PATCH TD SCH (17:45)
[2017-09-08] MEDS: ceFAZolin 2 GM/SWFI 2 GM/20 ML SYR IVP SCH (04:50)
[2017-09-08] MEDS: LEVALBUTEROL 1.25 MG/3 ML DEYVIAL IH SCH ×3 (05:20→21:14)
[2017-09-08] MEDS: HEPARIN 5,000 UNIT/0.5 ML SYR SC SCH ×3 (06:17→23:11)
[2017-09-08] MEDS ORDERED: HYDROCODONE/APAP 5/325 TAB PO PRN (07:27)
--- NOTE | 2017-09-08 07:28 | SOAPPROG ---
SOAP Progress Note Assessment/Plan: Assessment: POD#3 urgent CABG x 3 (EVANS-LAD, QIAN-Dx, SV-LCX), open vein harvest left low leg, left sided Maze with AtriClip ligation VALERIE. Cystoscopy, complex dilatation of urethral stricture and complex passage of edwards cath per urology Sx progressive CAD/ISR with preserved LV systolic fx - s/p CABG with 2 bilateral mammaries. Marginal early postop hemodynamics and secondary renal insuff treated with IVF and transient low dose pressor support. Diuresis of moderate fluid overload in progress. Secondary prevention with baby ASA, BB as allowed by rhythm, and statin when eating well. Plavix no longer needed as stented territories revascularized. Postoperative acute respiratory insufficiency - Hypoventilation with increasing suppl O2 requirements and basilar consolidation. No overt pulm edema. No evidence mucous plugging by bronch but retained mucous apparent. Symptomatically better after suction of secretions and addition of fentanyl patch. To cont bronchodilators, mucolytics prn. Paroxysmal atrial fibrillation/chronically anticoagulated with Pradaxa - Only partial Maze completed d/t fragility of tissues. Predominant postop rhythm junctional and Apaced for optimized hemodynamics. Consider EP consult for ? PPM if remains paced thru tomorrow. Urethral stricture - Attributed to scarring post XRT for prostate CA. Intraop dilatation by urology. Able to void post edwards removal. Acute expected blood loss anemia with thrombocytopenia and mild coagulopathy - Stable s/p 2u PRBC. No evidence active bleeding. Care with re-anticoagulation while plts depressed. Plan: Decr Apace backup to 50. Inc rate to 80 if SBP < 90. Relax diuresis. Keep blakes for now. Inc activity as tolerated. Tx to PCU. 09/08/17 07:27 Subjective: Doing ok. Breathing much easier. Able to walk a little. Voiding small quantities. Thirsty but no appetite. Objective: Vital Signs Temp Pulse Resp BP Pulse Ox 36.5 C 80 25 H 131/63 H 93 09/07/17 20:00 09/08/17 06:00 09/08/17 06:00 09/08/17 06:00 09/08/17 06:00 Microbiology 09/07/17 15:00 - Final Sputum, Induced/Suctioned 09/05/17 13:20 Urine Culture - Final Urine,Catheterized Laboratory Results 09/08/17 04:45 09/08/17 04:45 09/07/17 09/08/17 09/09/17 05:59 05:59 05:59 Intake Total 2585 850 Output Total 1989 2879 Balance 595 -2029 Apaced 80 for JR 40s. This am appears to have JR upper 50s and backup rate decr to 50. Holding SBPs > 90. Vigorous diuresis. Cr normalized. Improving fluid balance. +9 kg overall. CXR -> improved insp effort and basilar aeration, probable sm rt pl eff. Herson drain output remains sl elev. BAL aspirate no org seen. WBC trending down. Physical Exam - Physical Exam General Appearance: alert, no apparent distress Respiratory: crackles (bases), other (blakes x 3 to bulb suction, thin serosang drainage) Cardiac/Chest: regular rate, rhythm, other (Sternotomy and LLE venotomy CDI. A& V wires intact.) Abdomen: normal bowel sounds, non-tender, soft Skin: warm/dry Extremities: swelling (1+ donor leg, trace dependent RLE) ICD10 Worksheet Patient Problems: Problems Problem Status Onset CAD (coronary artery disease) Acute
[2017-09-08] MEDS ORDERED: POTASSIUM CL 20 MEQ TAB PO SCH (09:00)
[2017-09-08] MEDS ORDERED: FUROSEMIDE 40 MG TAB PO SCH (09:00)
[2017-09-08] MEDS: DORZOLAMIDE 2% OPTH DROPS OP SCH ×2 (09:50→23:12)
[2017-09-08] MEDS: ASPIRIN 81 MG CHEWABLE TAB PO SCH (09:50)
[2017-09-08] MEDS: PANTOPRAZOLE SODIUM 40 MG TAB PO SCH (09:50)
[2017-09-08] MEDS: traMADol 50 MG TAB PO PRN (09:50)
[2017-09-08] MEDS: SENNOSIDES/DOCUSATE SODIUM TAB PO SCH ×2 (09:50→19:49)
[2017-09-08] MEDS: BRIMONIDINE 0.1% 5 ML OPHT.BTL EACHEYE SCH ×2 (09:51→23:12)
[2017-09-08] MEDS: Enzalutamide [Xtandi] 40 MG PO SCH (09:53)
--- NOTE | 2017-09-08 11:13 | PDINTPN ---
Blocker And Polisher Progress Note Assessment/Plan: Assessment: Status post CABG x3. Hemodynamics stable, doing well. Acute blood-loss anemia. Status post 2 units of blood. Hematocrit stable at 31. Decreased bleeding from chest tubes Hypoxemia/atelectasis: Significantly improved after removal of mucus from right bronchus intermedius yesterday. Chest x-ray shows increased aeration at the right base. Oxygen down to 3 L at rest. Awaiting culture results from bronchial washings. Nor organism seen. Prophylaxis: On subcu heparin and pantoprazole. History of atrial fibrillation, paced. Metabolic: Glucoses improved. Plan: Can transfer to PCU. Continue IS, bronchodilator therapy. Increase mobilization/ambulation. Follow x-ray intermittently. Check cultures when available. 20 min of critical care time spent directly with the patient. Discussed with the patient and his , cardiovascular surgery, nursing. Subjective: Feels better this morning. Breathing better. Less chest pain. Objective: Vital Signs Temp Pulse Resp BP Pulse Ox 36.5 C 80 25 H 131/63 H 93 09/07/17 20:00 09/08/17 06:00 09/08/17 06:00 09/08/17 06:00 09/08/17 06:00 Microbiology 09/07/17 15:00 - Final Sputum, Induced/Suctioned 09/05/17 13:20 Urine Culture - Final Urine,Catheterized Laboratory Results 09/08/17 04:45 09/08/17 04:45 09/07/17 09/08/17 09/09/17 05:59 05:59 05:59 Intake Total 2585 850 Output Total 1989 2879 Balance 595 -2030 Bronch wash culture negative so far. CXR: Significantly improved aeration at the right base. Some basilar atelectasis and effusions persist. Apical pneumothorax improving Physical Exam - Physical Exam General Appearance: alert, no apparent distress EENT: other (Nasal cannula at 3 L) Neck: normal inspection (No obvious JVD. CVP 12 on monitor) Respiratory: decreased breath sounds (Bilaterally), rales (Anteriorly on the left and at bases), pleural rub (Left base), No rhonchi, No wheezing Cardiac/Chest: regular rate, rhythm (Paced) Abdomen: normal bowel sounds, non-tender, soft Male Genitalia: other (Good urine output. Output greater than input last 24 hr. ) Skin: normal color, warm/dry Extremities: pedal edema (Trace +) Neuro/Psych: no motor/sensory deficits, No cognition abnormalities ICD10 Worksheet Patient Problems: Problems Problem Status Onset CAD (coronary artery disease) Acute
[2017-09-08] MEDS ORDERED: WARFARIN SODIUM 2.5 MG TAB PO ONE ×2 (16:00→18:30)
[2017-09-08] MEDS: ONDANSETRON 4 MG/2 ML VIAL IVP PRN (18:38)
[2017-09-09] MEDS: LEVALBUTEROL 1.25 MG/3 ML DEYVIAL IH SCH ×2 (05:00→14:30)
[2017-09-09] MEDS: HEPARIN 5,000 UNIT/0.5 ML SYR SC SCH ×3 (05:37→21:26)
[2017-09-09 06:34] LABS: PLATELET COUNT 125 10^3/uL (150-400)
--- NOTE | 2017-09-09 06:37 | SOAPPROG ---
SOAP Progress Note Assessment/Plan: Assessment: POD#4 urgent CABG x 3 (EVANS-LAD, QIAN-Dx, SV-LCX), open vein harvest left low leg, left sided Maze with AtriClip ligation VALERIE. Cystoscopy, complex dilatation of urethral stricture and complex passage of edwards cath per urology Sx progressive CAD/ISR with preserved LV systolic fx - s/p CABG with 2 bilateral mammaries. Marginal early postop hemodynamics and secondary renal insuff treated with IVF and transient low dose pressor support. Diuresis of moderate fluid overload in progress. Secondary prevention with baby ASA, BB as allowed by rhythm, and statin when eating well. Plavix no longer needed as stented territories revascularized. Postoperative acute respiratory insufficiency - Hypoventilation with increasing suppl O2 requirements and basilar consolidation. No overt pulm edema. No evidence mucous plugging by bronch but retained mucous apparent. Symptomatically better after suction of secretions and addition of fentanyl patch. Expect further improvement after removal of pleural tubes. Cont bronchodilators, mucolytics prn. Paroxysmal atrial fibrillation/chronically anticoagulated with Pradaxa - Only partial Maze completed d/t fragility of tissues. Predominant postop rhythm junctional and Apaced for optimized hemodynamics. Consider EP consult for PPM if remains paced or chronotropically incompetent. Antithrombotic prophylaxis switched to Coumadin x 3 mo as per Maze protocol. Target INR 2-3. Urethral stricture - Attributed to scarring post XRT for prostate CA. Intraop dilatation by urology. Able to void post edwards removal. Acute expected blood loss anemia with thrombocytopenia and mild coagulopathy - Stable s/p 2u PRBC. No evidence active bleeding. Care with re-anticoagulation while plts depressed. Plan: Keep Awires connected but gen off. Resume Apacing 60 if intrinsic rate < 50 and SBP < 90. Stop lasix. Cont Coumadin 2.5 mg daily. Consider removal mediastinal and left pl diogo later today. Inc activity as tolerated. Dispo - Home +/- HHC in 2 days if rhythm stable. 09/09/17 06:33 Subjective: Daily gains in sense of well being. Intermittent dizziness with walking. Objective: Vital Signs Temp Pulse Resp BP Pulse Ox 37.1 C 64 16 123/73 H 94 09/09/17 04:00 09/09/17 05:01 09/09/17 05:01 09/09/17 04:00 09/09/17 05:01 Microbiology 03/07/18 15:00 - Final Sputum, Induced/Suctioned 09/08/17 09/09/17 09/10/17 05:59 05:59 05:59 Intake Total 850 380 Output Total 2880 2100 Balance -2029 -1719 Apaced 64 for JR 40s-50s with marginal SBP. This am appears to be maintaining rates in 50s with SBP > 100 and pacer turned off. Excellent sats on 2 lpm, likely could wean to 1 lpm. Negative fluid balance, minus 4 kg/24h. +6 kg overall. Mediastinal and left pleural drain approaching removal criteria. Morning labs pending. Physical Exam - Physical Exam General Appearance: alert, no apparent distress Respiratory: lungs clear (grossly), other (blakes x 3 to bulb suction, thin serosang drainage) Cardiac/Chest: regular rate, rhythm, other (Sternum grossly stable. Sternotomy and LLE venotomy CDI) Abdomen: non-tender, soft Skin: warm/dry Extremities: other (no visible edema) ICD10 Worksheet Patient Problems: Problems Problem Status Onset CAD (coronary artery disease) Acute
[2017-09-09 06:55] LABS: INR 1.29 (0.83-1.16); PROTIME(PATIENT) 16.3 SEC (12.0-15.0)
[2017-09-09] MEDS ORDERED: ENZALUTAMIDE 80 MG PO SCH (09:00)
[2017-09-09] MEDS: CHOLECALCIFEROL VIT D3 1,000 UNITS TAB PO SCH (09:51)
[2017-09-09] MEDS: ASPIRIN 81 MG CHEWABLE TAB PO SCH (09:52)
[2017-09-09] MEDS: MULTIVITAMINS 1 EACH TAB PO SCH (09:52)
[2017-09-09] MEDS: PANTOPRAZOLE SODIUM 40 MG TAB PO SCH (09:52)
[2017-09-09] MEDS: Enzalutamide [Xtandi] 40 MG PO SCH (09:53)
[2017-09-09] MEDS: DORZOLAMIDE 2% OPTH DROPS OP SCH ×2 (09:56→21:26)
[2017-09-09] MEDS: SENNOSIDES/DOCUSATE SODIUM TAB PO SCH (09:56)
[2017-09-09] MEDS: BRIMONIDINE 0.1% 5 ML OPHT.BTL EACHEYE SCH ×2 (09:56→21:26)
--- NOTE | 2017-09-09 14:18 | ASMTCMCOM ---
CM Note CM Note Notes: Pt is being followed by [facility]. CM spoke w/ Nelda from transitional care. CM met w/ pt and for dispo planning. PT is recommending home w/ 24hr supervision. reports that she is retired and home most of the day. reports that if she is not home she can have friends stop by. is not interested in private duty HC agencies. CM available for changes. Plan: Independent Date Signed: 09/09/2017 02:17 PM Electronically Signed By:ELENI Alfaro
[2017-09-09] MEDS ORDERED: WARFARIN SODIUM 2.5 MG TAB PO ONE (16:00)
--- NOTE | 2017-09-09 18:06 | SOAPPROG ---
SOAP Progress Note Assessment/Plan: Assessment: Status post CABG x3. Hemodynamics stable, improved. Acute blood-loss anemia. Status post 2 units of blood. Hematocrit better at 34. Hypoxemia/atelectasis: Significantly improved after removal of mucus from right bronchus intermedius. Chest x-ray showed increased aeration at the right base. Oxygen down to 1 L at rest. Cultures growing Stenothophomonas sensitive to Bactrim. However no clinical signs or symptoms of pneumonia. Question colonization. Will observe for now, recheck chest x-ray tomorrow. Prophylaxis: On subcu heparin and pantoprazole. History of atrial fibrillation, paced. Metabolic: Glucoses improved. Plan: Continue postop care. Continue IS, bronchodilator therapy. Increase mobilization/ambulation. Follow x-ray tomorrow. No indication for Bactrim at this time. Subjective: Some cough, not much mucus. Denies chest pain. Remains somewhat weak Objective: Vital Signs Temp Pulse Resp BP Pulse Ox 36.3 C 62 20 112/67 96 09/09/17 15:45 09/09/17 15:45 09/09/17 15:45 09/09/17 15:45 09/09/17 15:45 Microbiology 09/07/17 15:00 - Final Sputum, Induced/Suctioned Sputum Culture - Final Stenotrophomonas Maltophilia Laboratory Results 09/09/17 05:55 09/09/17 05:55 09/08/17 09/09/17 09/10/17 05:59 05:59 05:59 Intake Total 850 380 Output Total 2880 2100 320 Balance -2030 -1720 -320 PT 16.3 SEC (12.0-15.0) H 09/09/17 05:55 INR 1.29 (0.83-1.16) H 09/09/17 05:55 Physical Exam - Physical Exam General Appearance: alert, no apparent distress EENT: other (Nasal cannula 1 L now, 96%) Neck: normal inspection Respiratory: decreased breath sounds, rales (Present at bases), pleural rub ( Present on left, transmitted elsewhere) Cardiac/Chest: regular rate, rhythm (Paced) Abdomen: normal bowel sounds, non-tender, soft Skin: normal color, warm/dry Extremities: No pedal edema Neuro/Psych: no motor/sensory deficits, No cognition abnormalities ICD10 Worksheet Patient Problems: Problems Problem Status Onset CAD (coronary artery disease) Acute
[2017-09-09] MEDS ORDERED: SENNOSIDES/DOCUSATE SODIUM TAB PO PRN (21:00)
[2017-09-09] MEDS ORDERED: LEVALBUTEROL 1.25 MG/3 ML DEYVIAL IH PRN (22:00)
[2017-09-10] MEDS: HEPARIN 5,000 UNIT/0.5 ML SYR SC SCH ×3 (06:19→23:01)
[2017-09-10 07:04] LABS: INR 1.86 (0.83-1.16); PROTIME(PATIENT) 21.5 SEC (12.0-15.0)
--- NOTE | 2017-09-10 08:01 | SOAPPROG ---
SOAP Progress Note Assessment/Plan: POD#5 urgent CABG x 3 (EVANS-LAD, QIAN-Dx, SV-LCX), open vein harvest left low leg, left sided Maze with AtriClip ligation VALERIE. Cystoscopy, complex dilatation of urethral stricture and complex passage of edwards cath per urology Sx progressive CAD/ISR with preserved LV systolic fx - s/p CABG with bilateral mammaries. Marginal early postop hemodynamics and secondary renal insuff treated with IVF and transient low dose pressor support. Diuresis of moderate fluid overload in progress. Secondary prevention with baby ASA, BB as allowed by rhythm, and statin when eating well. Plavix no longer needed as stented territories revascularized. Postoperative acute respiratory insufficiency - Hypoventilation with increasing suppl O2 requirements and basilar consolidation. No overt pulm edema. No evidence mucous plugging by bronch but retained mucous apparent. Symptomatically better after suction of secretions and addition of fentanyl patch. Expect further improvement after removal of remaining chest tube. Cont bronchodilators, mucolytics prn. Paroxysmal atrial fibrillation/chronically anticoagulated with Pradaxa - Only partial Maze completed d/t fragility of tissues. Predominant postop rhythm junctional and Apaced for optimized hemodynamics. Did not requiring pacing overnight and currently in SR 80's. Antithrombotic prophylaxis switched to Coumadin x 3 mo as per Maze protocol. Target INR 2-3. Urethral stricture - Attributed to scarring post XRT for prostate CA. Intraop dilatation by urology. Problems with mild urinary retention following edwards removal. However, patient is accustomed to straight cathing at home. Acute expected blood loss anemia with thrombocytopenia and mild coagulopathy - Stable s/p 2u PRBC. Thrombocytopenia resolving without evidence of bleeding. Plan: Patient will straight cath himself with catheter from home if retaining > 250mls after voiding. Will cut pacing wires at skin today. Cont Coumadin 2.5 mg daily. Will d/c remaining chest drain today. Inc activity as tolerated. Liikely ready for discharge to home +/- [facility] tomorrow if rhythm remains stable. D/c TLC Subjective: Patient reports good pain control. No complaints. Objective: Vital Signs Temp Pulse Resp BP Pulse Ox 36.9 C 71 16 143/82 H 97 09/10/17 04:00 09/10/17 04:00 09/10/17 04:00 09/10/17 04:00 09/10/17 04:00 Microbiology 09/07/17 15:00 - Final Sputum, Induced/Suctioned Sputum Culture - Final Stenotrophomonas Maltophilia Laboratory Results 09/09/17 05:55 09/09/17 05:55 09/09/17 09/10/17 09/11/17 05:59 05:59 06:59 Intake Total 380 300 Output Total 2100 1080 Balance -1720 -780 PT 21.5 SEC (12.0-15.0) H 09/10/17 06:30 INR 1.86 (0.83-1.16) H 09/10/17 06:30 Physical Exam - Physical Exam General Appearance: WD/WN, alert, no apparent distress Respiratory: lungs clear, decreased breath sounds (bases) Cardiac/Chest: regular rate, rhythm, other (no murmur, sternum stable, sternotomy c/d/i) Abdomen: non-tender, soft (non-distended) Skin: warm/dry Extremities: other (1+ pitting edema of lower extremities L>R) Neuro/Psych: alert, normal mood/affect, oriented x 3 ICD10 Worksheet Patient Problems: Problems Problem Status Onset CAD (coronary artery disease) Acute
[2017-09-10] MEDS: BRIMONIDINE 0.1% 5 ML OPHT.BTL EACHEYE SCH ×2 (08:26→20:42)
[2017-09-10] MEDS: DORZOLAMIDE 2% OPTH DROPS OP SCH ×2 (08:26→20:42)
[2017-09-10] MEDS: ASPIRIN 81 MG CHEWABLE TAB PO SCH (08:27)
[2017-09-10] MEDS: PANTOPRAZOLE SODIUM 40 MG TAB PO SCH (08:27)
[2017-09-10] MEDS: MULTIVITAMINS 1 EACH TAB PO SCH (08:27)
[2017-09-10] MEDS: CHOLECALCIFEROL VIT D3 1,000 UNITS TAB PO SCH (08:27)
[2017-09-10] MEDS: Enzalutamide [Xtandi] 40 MG PO SCH (08:27)
[2017-09-10] MEDS ORDERED: FUROSEMIDE 40 MG/4 ML VIAL IVP ONE (09:49)
[2017-09-10] MEDS ORDERED: POTASSIUM CL 20 MEQ TAB PO ONE (09:49)
[2017-09-10] MEDS ORDERED: WARFARIN SODIUM 2.5 MG TAB PO ONE (16:00)
--- NOTE | 2017-09-10 16:26 | SOAPPROG ---
SOAP Progress Note Assessment/Plan: Assessment: Status post CABG x3. Hemodynamics stable, improved. Acute blood-loss anemia. Status post 2 units of blood. Last hematocrit 34. Hypoxemia/atelectasis: Significantly improved after removal of mucus from right bronchus intermedius. Chest x-ray showed increased aeration at the right base. Oxygen down to 1-2 L at rest. Cultures growing Stenothophomonas sensitive to Bactrim. However no clinical signs or symptoms of pneumonia. Question colonization. Chest x-ray stable, no evidence of significant pneumonia or worsening. Prophylaxis: On subcu heparin and pantoprazole. History of atrial fibrillation, paced. Metabolic: Glucoses improved. Plan: Continue postop care. Continue IS, bronchodilator therapy. Increase mobilization/ambulation. No indication for Bactrim at this time. I will sign off at this point. Please call me if fevers develop or pulmonary status changes. Subjective: Doing well. Chest tube out. Feels better. Objective: Vital Signs Temp Pulse Resp BP Pulse Ox 36.9 C 83 24 H 119/76 94 09/10/17 15:41 09/10/17 15:41 09/10/17 15:41 09/10/17 15:41 09/10/17 15:41 Microbiology 09/07/17 15:00 - Final Sputum, Induced/Suctioned Sputum Culture - Final Stenotrophomonas Maltophilia Laboratory Results 09/09/17 05:55 09/09/17 05:55 09/09/17 09/10/17 09/11/17 05:59 05:59 06:59 Intake Total 380 300 Output Total 2100 8999 1135 Balance -1720 -780 -1135 PT 21.5 SEC (12.0-15.0) H 09/10/17 06:30 INR 1.86 (0.83-1.16) H 09/10/17 06:30 CXR: Persistent small right basilar effusion/atelectasis. No pneumothorax Physical Exam - Physical Exam General Appearance: alert, no apparent distress EENT: other (Nasal cannula at 2 L) Neck: normal inspection (No JVD obvious) Respiratory: lungs clear (Anteriorly), decreased breath sounds (At bases, right more so than left), rales (Few rales at bases), No pleural rub Cardiac/Chest: regular rate, rhythm Abdomen: normal bowel sounds, non-tender, soft Skin: normal color, warm/dry Extremities: No pedal edema Neuro/Psych: no motor/sensory deficits, No cognition abnormalities ICD10 Worksheet Patient Problems: Problems Problem Status Onset CAD (coronary artery disease) Acute
[2017-09-11 04:12] LABS: INR 1.82 (0.83-1.16); PROTIME(PATIENT) 21.2 SEC (12.0-15.0)
[2017-09-11] MEDS: HEPARIN 5,000 UNIT/0.5 ML SYR SC SCH ×3 (05:59→22:21)
[2017-09-11] MEDS: traMADol 50 MG TAB PO PRN ×3 (05:59→19:55)
--- NOTE | 2017-09-11 08:18 | SOAPPROG ---
SOAP Progress Note Assessment/Plan: POD#6 urgent CABG x 3 (EVANS-LAD, QIAN-Dx, SV-LCX), open vein harvest left lower leg, left sided Maze with AtriClip ligation VALERIE. Cystoscopy, complex dilatation of urethral stricture and complex passage of edwards cath per urology Sx progressive CAD/ISR with preserved LV systolic fx - s/p CABG with bilateral mammaries. Marginal early postop hemodynamics and secondary renal insuff treated with IVF and transient low dose pressor support. Diuresis of moderate fluid overload in progress. Secondary prevention with baby ASA, BB as allowed by rhythm, and statin when eating well. Plavix no longer needed as stented territories revascularized. Postoperative acute respiratory insufficiency - Hypoventilation with increasing suppl O2 requirements and basilar consolidation. No overt pulm edema. No evidence mucous plugging by bronch but retained mucous apparent. Symptomatically better after suction of secretions and addition of fentanyl patch. Chest tube removed without difficulty yesterday. CXR this am showed persistent tiny left apical PTX. Cont bronchodilators, mucolytics prn. Paroxysmal atrial fibrillation/chronically anticoagulated with Pradaxa - Only partial Maze completed d/t fragility of tissues. Predominant postop rhythm junctional and Apaced for optimized hemodynamics. Pacing wires cut at the skin yesterday. Currently still in SR 80's, however had some ectopy with ambulation today. Antithrombotic prophylaxis switched to Coumadin x 3 mo as per Maze protocol. Target INR 2-3. Urethral stricture - Attributed to scarring post XRT for prostate CA. Intraop dilatation by urology. Problems with mild urinary retention following edwards removal requiring prn straight cathing by patient. Acute expected blood loss anemia with thrombocytopenia and mild coagulopathy - Stable s/p 2u PRBC. Thrombocytopenia resolving without evidence of bleeding. Plan: CXR in am. Start Metoprolol 12.5mg BID Patient will continue to straight cath himself prn. Cont Coumadin 2.5 mg daily. Inc activity as tolerated. Will watch rhythm overnight and likely discharge patient to home +/- [facility] tomorrow. Subjective: Patient reports good pain control. Anxious to go home. Objective: Vital Signs Temp Pulse Resp BP Pulse Ox 36.6 C 81 20 144/77 H 97 09/11/17 07:28 09/11/17 07:28 09/11/17 07:28 09/11/17 07:28 09/11/17 07:28 Laboratory Results 09/09/17 05:55 09/11/17 03:40 09/10/17 09/11/17 09/12/17 04:59 05:59 05:59 Intake Total Output Total Balance PT 21.2 SEC (12.0-15.0) H 09/11/17 03:40 INR 1.82 (0.83-1.16) H 09/11/17 03:40 Physical Exam - Physical Exam General Appearance: WD/WN, alert, no apparent distress Respiratory: lungs clear, decreased breath sounds (bases R>L) Cardiac/Chest: regular rate, rhythm, other (sternum stable, sternotomy c/d/i) Abdomen: normal bowel sounds, non-tender, soft Skin: warm/dry Extremities: other (Warm, minimal lower extremity edema) Neuro/Psych: alert, normal mood/affect, oriented x 3 ICD10 Worksheet Patient Problems: Problems Problem Status Onset CAD (coronary artery disease) Acute
[2017-09-11] MEDS: BRIMONIDINE 0.1% 5 ML OPHT.BTL EACHEYE SCH ×2 (08:26→19:57)
[2017-09-11] MEDS: PANTOPRAZOLE SODIUM 40 MG TAB PO SCH (08:26)
[2017-09-11] MEDS: DORZOLAMIDE 2% OPTH DROPS OP SCH ×2 (08:26→19:56)
[2017-09-11] MEDS: MULTIVITAMINS 1 EACH TAB PO SCH (08:26)
[2017-09-11] MEDS: EZETIMIBE 10 MG TAB PO SCH (08:27)
[2017-09-11] MEDS: ASPIRIN 81 MG CHEWABLE TAB PO SCH (08:27)
[2017-09-11] MEDS: CHOLECALCIFEROL VIT D3 1,000 UNITS TAB PO SCH (08:27)
[2017-09-11] MEDS: ATORVASTATIN CALCIUM 40 MG TAB PO SCH (08:27)
[2017-09-11] MEDS: Enzalutamide [Xtandi] 40 MG PO SCH (08:27)
[2017-09-11] MEDS ORDERED: POTASSIUM CL 20 MEQ/15 ML UDCUP PO ONE (10:02)
--- NOTE | 2017-09-11 11:00 | CPEKG ---
Heart Rate: 76 RR Interval: 789 P-R Interval: 131 QRSD Interval: 78 QT Interval: 412 QTC Interval: 464 P [place]: 55 QRS [place]: 57 T Wave [place]: 31 EKG Severity - NORMAL ECG - EKG Impression: SINUS RHYTHM Electronically Signed By: Missael Nicolas 11-Sep-2017 16:31:49
[2017-09-11] MEDS: METOPROLOL TARTRATE 25 MG TAB PO SCH ×2 (11:43→19:56)
[2017-09-11] MEDS ORDERED: WARFARIN SODIUM 3 MG TAB PO ONE (16:00)
[2017-09-12 04:43] LABS: INR 1.82 (0.83-1.16); PROTIME(PATIENT) 21.2 SEC (12.0-15.0)
[2017-09-12] MEDS: HEPARIN 5,000 UNIT/0.5 ML SYR SC SCH (06:16)
--- NOTE | 2017-09-12 06:30 | SOAPPROG ---
SOAP Progress Note Assessment/Plan: POD#7: Urgent CABG x 3 (EVANS-LAD, QIAN-Dx, SV-LCX), open vein harvest left lower leg, left sided Maze with AtriClip ligation VALERIE. Severe CAD/ISR s/p CABG - secondary prevention with baby ASA, BB, and statin. Plavix no longer needed as stented territories revascularized. Postoperative respiratory insufficiency - s/p bronchoscopy with Dr. Macias on 3 with evidence of mucous plugging. Now on 2L and weaning slowly to room air. CXR continues to show right effusion vs atelectasis vs hemidiaphragm elevation. Cont bronchodilators, mucolytics prn. Consider US to quantify fluid. Paroxysmal atrial fibrillation s/p left-sided Maze - currently in SR/AF. Antithrombotic prophylaxis switched (was on Pradaxa) to Coumadin x 3 mo as per Maze protocol. Target INR 2-3. Urethral stricture - Attributed to scarring post XRT for prostate CA. Intraop dilatation by urology. Problems with mild urinary retention following edwards removal requiring prn straight cathing by patient. Acute blood loss anemia with thrombocytopenia - stable s/p 2u PRBC. Thrombocytopenia resolving. Subjective: Denies SOB/CP. Feels ready to go home without services. Objective: Vital Signs Temp Pulse Resp BP Pulse Ox 36.9 C 61 17 135/87 H 95 09/12/17 03:57 09/12/17 03:57 09/12/17 03:57 09/12/17 03:57 09/12/17 03:57 Laboratory Results 09/09/17 05:55 09/12/17 03:28 09/11/17 09/12/17 09/13/17 05:59 05:59 05:59 Intake Total 1350 Output Total 1100 Balance 250 PT 21.2 SEC (12.0-15.0) H 09/12/17 03:28 INR 1.82 (0.83-1.16) H 09/12/17 03:28 Physical Exam - Physical Exam General Appearance: WD/WN, alert, no apparent distress EENT: No scleral icterus (R), No scleral icterus (L) Neck: normal inspection Respiratory: No respiratory distress Cardiac/Chest: regular rate, rhythm, irregularly irregular Abdomen: non-tender, soft, No distended Skin: normal color, warm/dry Extremities: No pedal edema Neuro/Psych: no motor/sensory deficits, alert, normal mood/affect, oriented x 3 ICD10 Worksheet Patient Problems: Problems Problem Status Onset CAD (coronary artery disease) Acute
[2017-09-12] MEDS: METOPROLOL TARTRATE 25 MG TAB PO SCH ×2 (08:59→18:47)
[2017-09-12] MEDS: ASPIRIN 81 MG CHEWABLE TAB PO SCH (08:59)
[2017-09-12] MEDS: ATORVASTATIN CALCIUM 40 MG TAB PO SCH (08:59)
[2017-09-12] MEDS: PANTOPRAZOLE SODIUM 40 MG TAB PO SCH (08:59)
[2017-09-12] MEDS: EZETIMIBE 10 MG TAB PO SCH (08:59)
[2017-09-12] MEDS: CHOLECALCIFEROL VIT D3 1,000 UNITS TAB PO SCH (08:59)
[2017-09-12] MEDS: BRIMONIDINE 0.1% 5 ML OPHT.BTL EACHEYE SCH (09:02)
[2017-09-12] MEDS: Enzalutamide [Xtandi] 40 MG PO SCH (09:02)
[2017-09-12] MEDS: DORZOLAMIDE 2% OPTH DROPS OP SCH (09:02)
[2017-09-12] MEDS: MULTIVITAMINS 1 EACH TAB PO SCH (09:09)
[2017-09-12] MEDS: traMADol 50 MG TAB PO PRN (09:09)
--- NOTE | 2017-09-12 09:11 | PDHOMEO2F ---
Home Oxygen Face to Face Home Orders: I certify that a physician or a nurse practitioner or physician's patient care nursing assistant has had a [id number] encounter with this patient on the date of this order due to the diagnosis listed, which relates to the primary reason the patient requires home oxygen. Alternative treatments have been tried, or considered, and deemed ineffective. It is anticipated that supplemental oxygen will result in improvement with treatment. Home oxygen qualifying diagnosis: bilateral pleural effusions, left pneumothorax , atelectasis, mucous plug Home oxygen secondary diagnosis: s/p CABG, s/p ablation SpO2 on room air (%): 86 Frequency of home oxygen needed: continuous Home oxygen liters per minute: 2 Home oxygen delivery device: nasal cannula Concentrator: Yes E-tanks for mobility and back up: Yes If ordering portable O2, is the patient mobile in the home?: Yes I certify that, based on these findings, the home oxygen is medically necessary for this patient for the following length of time. Length of time home oxygen needed: 1 month
--- NOTE | 2017-09-12 10:51 | ASMTCMCOM ---
CM Note CM Note Notes: Medically cleared for discharge home. Patient to follow up as outpatient with cardiac rehab. No needs identified. CM available should needs arise. Date Signed: 09/12/2017 10:50 AM Electronically Signed By:Andra Amor RN
[2017-09-12 12:04] VITALS: O2SAT 91
[2017-09-12] MEDS ORDERED: LIDOCAINE 1% 300 MG/30 ML SDV ONE (14:19)
--- NOTE | 2017-09-12 15:16 | PDRADPN ---
Radiology Procedure Note Date of Procedure: 09/12/17 Radiologist: Arron Weber Anesthesia: Local (Specify) Pre-op Diagnosis: moderate right pleural effusion Post-op Diagnosis: same Indication: therapeutic Procedure: thoracentesis Finding(s): 600mL of thin, red tinged fluid aspirated. Inf/Abcess present in the surg proc area at time of surgery?: No Depth: Organ Space EBL: Minimal Complications: none Specimen(s): none
[2017-09-12] MEDS ORDERED: WARFARIN SODIUM 3 MG TAB PO ONE (16:00)
[2017-09-12 18:25] VITALS: BP 113/69; PULSE 79; RESP 13; TEMP 97.4
--- NOTE | 2017-09-12 19:25 | PDDCSUM ---
Discharge Summary Discharge Summary: ADMISSION DATE: 09/05/17 DISCHARGE DATE: 09/12/17 ADMISSION DIAGNOSES: 1. Severe coronary artery disease 2. Paroxysmal atrial fibrillation 3. Urethral stricture with urinary retention and need for self-catheterization DISCHARGE DIAGNOSES: 1. Severe coronary artery disease 2. Paroxysmal atrial fibrillation 3. Urethral stricture with urinary retention and need for self-catheterization 4. Acute blood loss anemia 5. Respiratory insufficiency PROCEDURES 09/05/17, Carmelo Garcia: 1. CABGx3 (EVANS-LAD, QIAN-D1, SVG-LCX), open vein harvest LLE, AtriClip VALEREI, left-sided Gonzalez-Maze 09/05/17, Eh Chen: 1. Cystoscopy with dilation of urethral stricture 09/07/17, Merritt Macias: 1. Bronchoscopy with removal of mucous plug from right lower lobe/bronchus intermedius 09/12/17, Arron Weber: 1. Right thoracentesis with removal of 600 mL of fluid HOSPITAL COURSE BY PROBLEM LIST 1. Severe CAD - stable s/p CABGx3. Continue beta-chanda, aspirin, and statin. Plavix discontinued as stents were bypassed. 2. Paroxysmal atrial fibrillation - s/p left-sided Gonzalez-Maze with occlusion of left atrial appendage. Continue Coumadin with INR goal 2-3 with d/c of Pradaxa. 3. Urethral stricture with urinary retention - due to radiation therapy. Successful dilation by urology. Pt to resume self-catheterization as needed. 4. Acute blood loss anemia - stable after transfusion of 2 units of PRBCs. 5. Respiratory insufficiency - improvement with bronchoscopy and thoracentesis. Pt sent home on continuous oxygen at 2 liters/min with oxygen saturations > 90% CONDITION Good DISPOSITION Home, self-care ACTIVITY Pt was instructed on sternal precautions, activity limitations, and which problems to call [facility] with. Please see Discharge Plan in chart for specifics. DISCHARGE MEDICATIONS Continue: Atorvastatin Calcium [Lipitor 40 mg (*)] 40 mg PO DAILY Brimonidine 0.1% [ALPHAGAN P 0.1% (*)] 1 drops EACHEYE BID Cholecalciferol Vit D3 [Vitamin D3 (*)] 2,000 units PO DAILY Degarelix Acetate [Firmagon] 28 mg SQ Q30D Enzalutamide [Xtandi] 80 mg PO DAILY Ezetimibe [Zetia 10 MG (*)] 10 mg PO DAILY Multivitamins [Multivitamin (*)] 1 each PO DAILY Calcium Carbonate/Vitamin D3 [Calcium 600 + Vit D 400 Softgl] 2 each PO DAILY Denosumab [Prolia] 60 mg SQ .Q180D Dorzolamide 2% [Trusopt 2% (*)] 1 drops OP BID diphenhydrAMINE HCL [Benadryl Allergy] 12.5 mg PO DAILY PRN New: Acetaminophen [Tylenol 325mg (*)] 325 - 650 mg PO Q4HRS PRN Aspirin [Aspirin 81mg (*)] 81 mg PO DAILY Metoprolol Tartrate [Lopressor 25 mg (*)] 12.5 mg PO BID Warfarin Sodium 3 mg PO DAILY AT 4PM Oxygen, 2 liters/min, continuous Stop Nitroglycerin Pradaxa Plavix Cozaar PENDING STUDIES/LABS 1. CXR prior to surgical follow-up 2. [facility]R at [facility] 09/15/17 FOLLOW-UP 1.Carmelo Garcia, 09/20/17, 10:45 AM
== END 2017-09-12 19:32 | disposition home or self-care (01) | DRG 228 ==
LOC: F2W 10:14 → F2N 10:53 → F2W 09-08 15:26
PROVIDERS: ADMIT Thoracic Surgery (Cardiothoracic Vascular Surgery); ATTEND Thoracic Surgery (Cardiothoracic Vascular Surgery)
PROC: 02100A9 Bypass Coronary Artery, One Artery from Left Internal Mammary with Autologous Arterial Tissue, Open Approach (ICD-10-PCS; principal; 2017-09-05 13:00)
PROC: 02580ZZ Destruction of Conduction Mechanism, Open Approach (ICD-10-PCS; principal; 2017-09-05 13:00)
PROC: 02L70ZK Occlusion of Left Atrial Appendage, Open Approach (ICD-10-PCS; principal; 2017-09-05 13:00)
PROC: 5A1221Z Performance of Cardiac Output, Continuous (ICD-10-PCS; principal; 2017-09-05 13:00)
PROC: 021009W Bypass Coronary Artery, One Artery from Aorta with Autologous Venous Tissue, Open Approach (ICD-10-PCS; principal; 2017-09-05 13:00)
PROC: 02100A8 Bypass Coronary Artery, One Artery from Right Internal Mammary with Autologous Arterial Tissue, Open Approach (ICD-10-PCS; principal; 2017-09-05 13:00)
PROC: 0T7D8ZZ Dilation of Urethra, Via Natural or Artificial Opening Endoscopic (ICD-10-PCS; principal; 2017-09-05 13:00)
PROC: 06BQ0ZZ Excision of Left Saphenous Vein, Open Approach (ICD-10-PCS; principal; 2017-09-05 13:00)
PROC: 30233N1 Transfusion of Nonautologous Red Blood Cells into Peripheral Vein, Percutaneous Approach (ICD-10-PCS; 2017-09-05 13:00)
PROC: 0BCF8ZZ Extirpation of Matter from Right Lower Lung Lobe, Via Natural or Artificial Opening Endoscopic (ICD-10-PCS; 2017-09-07)
PROC: 0W993ZZ Drainage of Right Pleural Cavity, Percutaneous Approach (ICD-10-PCS; 2017-09-12)
DX: I25.10 Atherosclerotic heart disease of native coronary artery without angina pectoris (principal); Z95.5 Presence of coronary angioplasty implant and graft; I48.0 Paroxysmal atrial fibrillation; Z79.01 Long term (current) use of anticoagulants; D62 Acute posthemorrhagic anemia; J95.1 Acute pulmonary insufficiency following thoracic surgery; J91.8 Pleural effusion in other conditions classified elsewhere; J98.09 Other diseases of bronchus, not elsewhere classified; N35.8 Other urethral stricture; Y84.2 Radiological procedure and radiotherapy as the cause of abnormal reaction of the patient, or of later complication, without mention of misadventure at the time of the procedure; R33.9 Retention of urine, unspecified; Z85.46 Personal history of malignant neoplasm of prostate; E78.00 Pure hypercholesterolemia, unspecified; Z87.891 Personal history of nicotine dependence
CPT/HCPCS: 82947-QW; 97116-GP; 97161-GP; 97166-GO; 97530-GO; 97530-GP; 97535-GO; C1769; G8978-GP-CJ; G8979-GP-CI; G8987-GO-CK; G8988-GO-CI; G8989-GO-CI; J0153; J0282; J0690; J1100; J1265; J1644; J1815; J1940; J2001; J2150; J2250; J2260; J2270; J2370; J2405; J2440; J2704; J2720; J2765; J2930; J3010; J3475; J3480; J7060; P9016; P9041

== ENCOUNTER → 2017-09-20 | Outpatient (CLI) | payer OTHER ==
[~2017-09-20] MED LIST changes: -ADENOSINE 6 MG/2 ML VIAL ONE; -ALBUMIN 5% 250 ML BOTTLE IV ONE; -AMIODARONE HCL 150 MG/3 ML VIAL ONE; -CALCIUM CHLORIDE 1 GM/10 ML INJ ONE; -CITRATE DEXTROSE SOLN 500 ML BAG ONE; -DOPamine/DEXTROSE/250 ML BAG IV ONE; -HEPARIN 10,000 UNIT/10 ML MDV (1,000 UNIT/ML) ONE; -INSULIN REGULAR HUMAN 100 UNIT in NS 100 ML IV ONE; +LIDOCAINE 1% 300 MG/30 ML SDV ONE; -LIDOCAINE 2% 100 MG/5 ML SYR ONE; -MAGNESIUM SULFATE 1 GM/2 ML VIAL ONE; -MANNITOL 25% 12.5 GM/50 ML VIAL IVP ONE; -MILRINONE/DEXTROSE/100 ML BAG IV ONE; -NA BICARBONATE 50 MEQ/50 ML VIAL ONE; -NOREPINEPHRINE BITARTRATE 16 MG in NS 250 ML IV ONE; -PHENYLEPHRINE HCL 50 MG in NS 250 ML IV ONE; -PROTAMINE SULFATE 50 MG/5 ML VIAL IVP ONE; -SODIUM BICARBONATE 20 MEQ, LIDOCAINE 1% 10 ML in NORMOSOL-R 1,000 ML MISC ONE; -VERAPAMIL 5 MG, NITROGLYCERIN 2.5 MG, HEPARIN 500 UNIT, SODIUM BICARBONATE 0.2 MEQ in L... MISC ONE; -ceFAZolin 1 GM VIAL ONE; -methylPREDNISolone SOD SUCC 1 GM/8 ML VIAL ONE; -niCARdipine/NACL/200 ML BAG IV ONE
== END ==
LOC: FIMAGING 14:11
PROVIDERS: ATTEND Thoracic Surgery (Cardiothoracic Vascular Surgery)
PROC: 0W993ZZ Drainage of Right Pleural Cavity, Percutaneous Approach (ICD-10-PCS; principal; 2017-09-20)
DX: J90 Pleural effusion, not elsewhere classified (principal); J94.8 Other specified pleural conditions

== ENCOUNTER → 2017-09-20 | Outpatient (CLI) | payer OTHER | LOC: FIMAGING 09:27 | PROVIDERS: ATTEND Thoracic Surgery (Cardiothoracic Vascular Surgery) | DX: Z09 Encounter for follow-up examination after completed treatment for conditions other than malignant neoplasm (principal); Z95.1 Presence of aortocoronary bypass graft; J90 Pleural effusion, not elsewhere classified; J98.11 Atelectasis ==

== ENCOUNTER → 2017-09-21 | Outpatient (CLI) | payer OTHER | LOC: FIMAGING 12:09 | PROVIDERS: ATTEND Thoracic Surgery (Cardiothoracic Vascular Surgery) | DX: J90 Pleural effusion, not elsewhere classified (principal); Z86.79 Personal history of other diseases of the circulatory system; Z95.1 Presence of aortocoronary bypass graft; Z98.890 Other specified postprocedural states ==

== ENCOUNTER → 2017-09-26 | Outpatient (CLI) | payer OTHER | LOC: FIMAGING 14:10 | PROVIDERS: ATTEND Thoracic Surgery (Cardiothoracic Vascular Surgery) | DX: J93.9 Pneumothorax, unspecified (principal); J90 Pleural effusion, not elsewhere classified; Z95.1 Presence of aortocoronary bypass graft; Z86.79 Personal history of other diseases of the circulatory system; Z98.890 Other specified postprocedural states ==

== ENCOUNTER → 2017-10-03 | Outpatient (CLI) | payer OTHER | LOC: FIMAGING 14:16 | PROVIDERS: ATTEND Thoracic Surgery (Cardiothoracic Vascular Surgery) | DX: J90 Pleural effusion, not elsewhere classified (principal); Z95.1 Presence of aortocoronary bypass graft ==

== ENCOUNTER → 2017-10-12 | Outpatient (CLI) | payer OTHER | LOC: FIMAGING 14:37 | PROVIDERS: ATTEND Thoracic Surgery (Cardiothoracic Vascular Surgery) | DX: J90 Pleural effusion, not elsewhere classified (principal) ==

== ENCOUNTER → 2017-12-05 | Outpatient (CLI) | payer OTHER | LOC: BHFA 14:45 | PROVIDERS: ATTEND Internal Medicine Cardiovascular Disease | DX: I48.0 Paroxysmal atrial fibrillation (principal); I25.10 Atherosclerotic heart disease of native coronary artery without angina pectoris ==

== ENCOUNTER → 2018-03-07 | Outpatient (CLI) | payer OTHER | LOC: BHFA 09:00 | PROVIDERS: ATTEND Internal Medicine Cardiovascular Disease | DX: I48.91 Unspecified atrial fibrillation (principal) ==

== ENCOUNTER → 2018-09-29 | Outpatient (CLI) | payer OTHER | LOC: CIMAGING 09:33 | PROVIDERS: ATTEND Internal Medicine Cardiovascular Disease | DX: R05 Cough (principal); R06.09 Other forms of dyspnea | CPT/HCPCS: 71046-PO ==

== ENCOUNTER → 2018-10-10 | Outpatient (CLI) | payer OTHER | LOC: BHCLAF 11:30 | PROVIDERS: ATTEND Internal Medicine Cardiovascular Disease | DX: R06.09 Other forms of dyspnea (principal) | CPT/HCPCS: 93306-PO ==